=== PATIENT | female | born 1985 | race Caucasian/White ===

== ENCOUNTER 2021-03-08 16:40 | Emergency (ER) | payer OTHER, SELFPAY ==
[2021-03-08 16:50] VITALS: BP 128/76; PULSE 68; RESP 16; TEMP 36.7; O2SAT 99; BMI 23.6
--- NOTE | 2021-03-08 17:05 | ED_ITS ---
HPI - General Adult General Chief complaint: Upper Respiratory Symptoms Stated complaint: Left Sided Facial/Tonsil Pain Time Seen by Provider: 03/08/21 17:04 Source: patient Mode of arrival: Ambulatory History of Present Illness HPI narrative: 35-year-old woman with no significant medical issues presents with worsening sore throat. She was seen in urgent care yesterday diagnosed with a viral pharyngitis with a negative strep test done at that time given oral dose of Decadron and discharged home. She returns today complaining that her throat is more swollen, more full and she feels that there is more fullness on the left side of her neck as well. She is able to swallow and there is no airway compromise. She describes no significant fevers or chills. No nausea, vomiting, diarrhea. No abdominal pain chest pain or palpitations. She does have a mild headache and is complaining of your pain in fullness and pain when she opens her jaw completely. Related Data Previous Rx's Medication Instructions Recorded amoxicillin 500 mg capsule 500 mg PO TID #21 cap 03/08/21 fluconazole 150 mg tablet 150 mg PO DAILY #1 tab 03/08/21 (Diflucan) Review of Systems Review of Systems Narrative: Remainder of complete review of systems is otherwise unremarkable except for t hat included in the HPI. Patient History Social History Smoking Status: Current every day smoker Smoking Status: Current every day smoker tobacco type: cigarettes alcohol intake frequency: a few times a week Substance Use Type: does not use Exam Narrative Exam Narrative: General: Healthy appearing, in no acute distress. Able to give a complete and coherent history. Well-nourished well-developed HEENT: Moist mucous membranes, normal sclera with reactive pupils, developing left peritonsillar cellulitis without abscess. Minor anterior cervical adenopathy on the left side. Normal tympanic membranes and ear canals bilaterally. Respiratory: Lungs are clear to auscultation, no wheezing no rales no rhonchi. Full and symmetrical air movement Cardiac: Regular rate and rhythm no murmurs no bruits Abdomen: Soft, nontender, good bowel tones, no flank pain Skin: Warm and dry, no rashes Neurologic: Grossly neurologically intact with no obvious asymmetries or abnormalities Extremities: No trauma, well perfused Psych: Cooperative, appropriate insight and affect Initial Vital Signs Initial Vital Signs: Vital Signs Temperature 98.1 F 03/08/21 16:50 Pulse Rate 68 03/08/21 16:50 Respiratory Rate 16 03/08/21 16:50 Blood Pressure 128/76 03/08/21 16:50 Pulse Oximetry 99 03/08/21 16:50 Course Orders Ordered: ED Orders 03/08/21 17:09 Throat Culture Stat 03/08/21 17:26 Complete Blood Count AUTO DIFF Stat Comprehensive Metabolic Panel Stat Sodium Chloride (Normal Saline 0.9%) 1,000 mls @ 1,000 mls/hr IV BOLUS ONE Stop: 03/08/21 18:25 Last Admin: 03/08/21 17:47 Dose: 1,000 mls/hr Documented by: JESSICA Discontinued Medications Ceftriaxone Sodium 2,000 mg/ (Sodium Chloride) 100 mls @ 200 mls/hr IV NOW ONE Stop: 03/08/21 17:27 Last Admin: 03/08/21 17:49 Dose: 200 mls/hr Documented by: JESSICA Methylprednisolone (Methylprednisolone 125 Mg/2 Ml Vial) 125 mg IV NOW ONE Stop: 03/08/21 17:27 Last Admin: 03/08/21 17:50 Dose: 125 mg Documented by: JESSICA Vital Signs Vital signs: Vital Signs - 8 hr 03/08/21 16:50 Temperature 98.1 F Pulse Rate 68 Respiratory Rate 16 Blood Pressure 128/76 Pulse Oximetry 99 Medical Decision Making Lab Data Result diagrams: 03/08/21 17:26 03/08/21 17:26 Labs: Lab Results 03/08/21 03/08/21 Range/Units 17:26 17:26 WBC 11.4 H (4.5-11.0) X10^3/uL RBC 4.94 (4.0-5.2) X10^6/uL Hgb 15.2 (12.0-16.0) g/dL Hct 44.0 (36-46) % MCV 89.1 (80-100) fL MCH 30.7 (26-34) PG MCHC 34.5 (30-36) % RDW 13.0 (11.6-14.8) % Plt Count 197 (150-400) X10^3/uL Neut % (Auto) 74.6 (50-75) % Lymph % (Auto) 18.3 L (25-40) % [place] % (Auto) 5.8 (3-14) % Eos % (Auto) 0.5 L (2-4) % Baso % (Auto) 0.8 (0-2) % Neut # (Auto) 8500 H (1367-2924) /uL Lymph # (Auto) 2100 (6519-3275) /uL [place] # (Auto) 700 (0-900) /uL Eos # (Auto) 100 (0-450) /uL Baso # (Auto) 100 (0-100) /uL Sodium 138 (137-145) mmol/L Potassium 4.2 (3.4-5.1) mmol/L Chloride 109 H (98-107) mmol/L Carbon Dioxide 27 (22-32) mmol/L BUN 13 (7-17) mg/dL Creatinine 0.81 (0.52-1.04) mg/dL Estimated GFR > 60.0 (>60) mL/min BUN/Creatinine Ratio 16.0 (6-22) Glucose 88 (70-100) mg/dL Calcium 9.5 (8.4-10.2) mg/dL Total Bilirubin 0.7 (0.2-1.3) mg/dL AST 20 (14-36) IU/L ALT 12 (<35) IU/L Alkaline Phosphatase 49 (38-126) U/L Total Protein 7.0 (6.3-8.2) g/dL Albumin 4.1 (3.5-5.0) g/dL Globulin 2.9 (1.7-4.1) g/dL Albumin/Globulin Ratio 1.4 (1.0-2.8) Point of Care Testing Rapid Strep A Negative Point of care testing: Point of Care Testing Rapid Strep A Negative MDM Narrative Medical decision making narrative: 35-year-old woman with what appears to be of bacterial developing peritonsillar cellulitis without abscess. No evidence of sepsis. She has responded nicely to fluids, a single dose of Solu-Medrol in the emergency department and 2 g of ceft riaxone. To be discharged home with complete course of amoxicillin. She states that she does frequently get post antibiotic yeast infection so will also be given a dose of Diflucan to take after antibiotics are completed. Reviewed signs and symptoms of worsening infection including development of actual peritonsillar abscess. At this point she is safe for home discharge Discharge Plan Departure Patient Disposition: Home Clinical Impression: Peritonsillar cellulitis Instructions: DI for Peritonsillar Abscess -- Adult Activity Restrictions/Additional Instructions: Thank you for coming in today You do not yet have a peritonsillar abscess but there is infection and that could develop if we do not start antibiotics today. I have given you a 2nd dose of steroids today, IV antibiotics as well as fluids. Your blood work is reassuring with no signs of overwhelming infection or sepsis. I have given you a 7 day prescription for amoxicillin please complete this to avoid any worsening symptoms. If your having any vaginal yeast symptoms at the end of the amoxicillin course, you can take the single dose of Diflucan. If you have worsening problems please return to the ER. Prescriptions: New amoxicillin 500 mg capsule 500 mg PO TID Qty: 21 0RF fluconazole [Diflucan] 150 mg tablet 150 mg PO DAILY Qty: 1 0RF
[2021-03-08] MEDS: SODIUM CHLORIDE 0.9% 1,000 ML 1000 ML IV (17:47)
[2021-03-08] MEDS: cefTRIAXone 2,000 MG in SODIUM CHLORIDE 0.9% 100 ML 200 ML IV (17:49)
[2021-03-08] MEDS: methylPREDNISolone 125 MG/2 ML VIAL IV (17:50)
[2021-03-08 18:08] LABS: Add Manual Diff / Slide Review NO; Basophils Absolute Auto 100 /uL (0-100); Basophils Percent Auto 0.8 % (0-2); Eosinophils Absolute Auto 100 /uL (0-450); Eosinophils Percent Auto 0.5 % (2-4); Hemoglobin 15.2 g/dL (12.0-16.0); Lymphocytes Absolute Auto 2100 /uL (1100-4500); Lymphocytes Percent Auto 18.3 % (25-40); Mean Corpuscular HGB Conc 34.5 % (30-36); Mean Corpuscular Hemoglobin 30.7 PG (26-34); Mean Corpuscular Volume 89.1 fL (80-100); Monocytes Absolute Auto 700 /uL (0-900); Monocytes Percent Auto 5.8 % (3-14); Neutrophils Absolute Auto 8500 /uL (1500-7000); Neutrophils Percent Auto 74.6 % (50-75); Platelet Count 197 X10^3/uL (150-400); Red Blood Cell Count 4.94 X10^6/uL (4.0-5.2); White Blood Cell Count 11.4 X10^3/uL (4.5-11.0)
[2021-03-08 18:14] LABS: Alanine Aminotransferase 12 IU/L (<35); Albumin 4.1 g/dL (3.5-5.0); Albumin Globulin Ratio 1.4 (1.0-2.8); Alkaline Phosphatase 49 U/L (38-126); Aspartate Aminotransferase 20 IU/L (14-36); Bilirubin Total 0.7 mg/dL (0.2-1.3); Blood Urea Nitrogen 13 mg/dL (7-17); Calcium 9.5 mg/dL (8.4-10.2); Carbon Dioxide 27 mmol/L (22-32); Chloride 109 mmol/L (98-107); Estimated Glomerular Filt Rate > 60.0 mL/min (>60); Globulin 2.9 g/dL (1.7-4.1); Glucose 88 mg/dL (70-100); HEMOLYSIS 32 (0-50); Potassium 4.2 mmol/L (3.4-5.1); Sodium 138 mmol/L (137-145)
[2021-03-08 19:25] VITALS: BP 104/63; PULSE 67; O2SAT 97
== END 2021-03-08 19:25 | disposition home or self-care (01) ==
PROVIDERS: Emergency Provider Emergency Medicine
DX: J36 Peritonsillar abscess (principal); F17.210 Nicotine dependence, cigarettes, uncomplicated
CPT/HCPCS: 36415; 80053; 85025; 87070; 87880; 96361; 96365; 96375; 99284; J0696; J2930

== ENCOUNTER 2021-03-27 06:00 | Emergency (ER) | payer OTHER, SELFPAY ==
--- NOTE | 2021-03-27 06:08 | ED_ITS ---
HPI - Extremity Injury (Lower) General Chief Complaint: Extremity Injury, Lower Stated Complaint: right foot/injury 03/26/21 Time Seen by Provider: 03/27/21 06:07 History of Present Illness HPI Narrative: The patient is a 35-year-old female presents with right ankle and foot pain. She states that she was snowboarding yesterday when she fell on the ice. She said her feet went 1 way in body went another. Significantly tender on the lateral side. No numbness tingling or weakness. She elevated and iced. Unable to bear weight. No other injury. Related Data Previous Rx's Medication Instructions Recorded amoxicillin 500 mg capsule 500 mg PO TID #21 cap 03/08/21 fluconazole 150 mg tablet 150 mg PO DAILY #1 tab 03/08/21 (Diflucan) hydrocodone 5 mg-acetaminophen 325 1 tab PO Q6H PRN #10 tab 03/27/21 mg tablet Allergies Allergy/AdvReac Type Severity Reaction Status Date / Time No Known Drug Allergies Allergy Verified 03/08/21 18:38 Review of Systems Review of Systems Narrative: GENERAL: Denies chills,fever HEENT: Denies throat pain RESPIRATORY: Denies dyspnea, cough, wheezing CARDIOVASCULAR: Denies chest pain, palpitations GASTROINTESTINAL: Denies nausea, vomiting MUSCULOSKELETAL: See HPI SKIN: No rash, no laceration, no pruritus NEUROLOGIC: Denies weakness, dizziness, headache, numbness 8 point review of systems is negative except for those stated above and HPI Patient History Social History Smoking Status: Current every day smoker Smoking Status: Current every day smoker tobacco type: cigarettes alcohol intake frequency: a few times a week Substance Use Type: does not use Exam Initial Vital Signs Initial Vital Signs: Vital Signs Temperature 97.1 F L 03/27/21 06:09 Pulse Rate 82 03/27/21 06:09 Respiratory Rate 18 03/27/21 06:09 Blood Pressure 118/58 L 03/27/21 06:09 Pulse Oximetry 98 03/27/21 06:09 GENERAL: Well-appearing, well-nourished and in no acute distress. CARDIOVASCULAR: peripheral pulses in tact, cap refill <2 sec RESPIRATORY: No respiratory distress, speaks in full sentences without difficulty EXTREMITIES: Normal range of motion, no clubbing or edema. Neurovascularly intact Right lower extremity swollen ankle tender laterally distal pedal pulse intact. Achilles tendon intact. Foot is nontender he will is no on is tender. No e rythema. Minimal tenderness medially. NEUROLOGICAL: Cranial nerves II through XII grossly intact. Normal gait and speech. SKIN: Warm, dry, no petechiae, no rashes or lesions. Procedures Orthopedic Splinting/Casting Injury #1: Lower Extremity Injury Location: ankle Lower Extremity Immobilizer: posterior splint Post splinting neuro exam: intact and no change Post splinting vascular exam: intact Placed by: Nursing Course Orders Ordered: Discontinued Medications Hydrocodone Bitart/Acetaminophen (Hydrocodone/Acet 5/325 Prepack) 1 bottle MISC SEEINSTR ONE Stop: 03/27/21 06:46 Last Admin: 03/27/21 08:08 Dose: 1 bottle Documented by: MARY Vital Signs Vital signs: Vital Signs - 8 hr 03/27/21 06:09 Temperature 97.1 F L Pulse Rate 82 Respiratory Rate 18 Blood Pressure 118/58 L Pulse Oximetry 98 MDM - Extremity Injury (Lower) Imaging Data Extremity x-ray #1: Radiologist's Impression: Spiral nondisplaced fracture metadiaphysis distal fibula with adjacent soft tissue swelling lateral malleolus. Discharge Plan Departure Patient Disposition: Home Clinical Impression: Fracture of distal end of fibula Qualifiers: Encounter type: initial encounter Fracture type: closed Fracture morphology: o ther fracture Laterality: right Qualified Code(s): S82.831A - Other fracture of upper and lower end of right fibula, initial encounter for closed fracture Instructions: Ankle Fracture Activity Restrictions/Additional Instructions: *You have been diagnosed with right ankle fracture *What to do: Acute splint on at all times. You may start toe touching as tolerated with crutches. Elevate and ice. *Continue to take medications as directed [place] 1 tablet every 6 hours if needed for severe pain Ibuprofen 600 mg every 6 hours if needed for [id number] pain *Follow up with your primary care provider in 2-3 days, call orthopedics today to schedule follow-up appointment in about 1-2 weeks or call [phone] *Return to ER if you should have increasing pain swelling numbness tingling or any new, worsening or concerning symptoms CONTROLLED SUBSTANCE DISCHARGE (Narcotoic/benzodiazepine/Flexeril/Phenergan) 1. You have been prescribed narcotic medications, it does have acetaminophen/Tylenol/paracetamol in it, DO NOT TAKE MORE THAN 4,00mg in 24 hours of Tylenol. TRAMADOL DOES NOT CONTAIN TYLENOL 2. Please understand that we cannot provide further refills of narcotics, benzodiazepines or controlled substances through the ED and her pain management will need to be through your provider. 3. While on these medications you cannot drive or operate heavy machinery. 4. You cannot sign legal documents or perform any duties such as this. 5. As long as you're taking opiate pain medications he should also be taking a stool softener such as Colace, Dulcolax, MiraLAX or prune juice, to help avoid constipation. Prescriptions: New hydrocodone-acetaminophen 5-325 mg tablet 1 tab PO Q6H PRN (Reason: pain) Qty: 10 0RF No Action amoxicillin 500 mg capsule 500 mg PO TID Qty: 21 0RF fluconazole [Diflucan] 150 mg tablet 150 mg PO DAILY Qty: 1 0RF Referrals: [facility] [Provider Group]
[2021-03-27 06:09] VITALS: BP 118/58; PULSE 82; RESP 18; TEMP 36.2; O2SAT 98; BMI 24.3
--- NOTE | 2021-03-27 06:11 | DI.RAD.S_ITS ---
PROCEDURE: XR ANKLE RT MIN 3V INDICATIONS: injury to right ankle TECHNIQUE: 3 views of the ankle were acquired. COMPARISON: None. FINDINGS: Bones: Spiral nondisplaced distal fibular fracture extending to the articular surface. Ankle mortise is normally aligned. No suspicious bony lesions. Soft tissues: No tibiotalar joint effusion. Achilles tendon appears normal. IMPRESSION: Undisplaced distal tibial fracture. Comment: Final report is concordant with preliminary interpretation provided by [facility]. Dictated by: Orlando Muñoz M.D. on 03/27/2021 at 8:08 Approved by: Orlando Muñoz M.D. on 03/27/2021 at 8:08
[2021-03-27 08:08] VITALS: BP 112/78; PULSE 68; RESP 1; O2SAT 98
[2021-03-27] MEDS: HYDROCODONE/ACET 5/325 PREPACK 1 BOTTLE MISC (08:08)
== END 2021-03-27 08:10 | disposition home or self-care (01) ==
PROVIDERS: Emergency Provider Emergency Medicine
DX: S82.831A Other fracture of upper and lower end of right fibula, initial encounter for closed fracture (principal); F17.210 Nicotine dependence, cigarettes, uncomplicated; W00.0XXA Fall on same level due to ice and snow, initial encounter; Y93.23 Activity, snow (alpine) (downhill) skiing, snowboarding, sledding, tobogganing and snow tubing
CPT/HCPCS: 29515; 73610; 99283

== ENCOUNTER 2023-11-29 19:52 | Emergency (ER) | payer OTHER, SELFPAY ==
[2023-11-29 20:00] VITALS: BP 119/58; PULSE 68; RESP 16; TEMP 36.5; O2SAT 99; BMI 26.1
--- NOTE | 2023-11-29 20:59 | ED_ITS ---
HPI - Neck Pain/Injury General Chief Complaint: Neck Pain/Injury Stated Complaint: neck, back and arm pain Time Seen by Provider: 11/29/23 20:55 Mode of arrival: Ambulatory History of Present Illness HPI Narrative: 38-year-old female was lying in bed, turned her head to the side, felt a pinching pain in her right superior trapezius region and upper right scapula, worse with right upper extremity movements, worse with neck movements. No midline neck pain. No numbness or tingling to the extremities. No other injuries. No prior neck spinal surgeries or injections or procedures. Related Data Previous Rx's Medication Instructions Recorded amoxicillin 500 mg capsule 500 mg PO TID #21 caps 03/08/21 fluconazole 150 mg tablet 150 mg PO DAILY #1 tab 03/08/21 (Diflucan) hydrocodone 5 mg-acetaminophen 325 1 tab PO Q6H PRN pain #10 tabs 03/27/21 mg tablet cyclobenzaprine 10 mg tablet 10 mg PO TID #14 tabs 11/29/23 Allergies Allergy/AdvReac Type Severity Reaction Status Date / Time No Known Drug Allergies Allergy Verified 11/29/23 20:06 Review of Systems Review of Systems Narrative: see HPI Patient History Social History Smoking Status: Current every day smoker Smoking Status: Current every day smoker tobacco type: cigarettes alcohol intake frequency: a few times a month Substance Use Type: does not use Exam Narrative Exam Narrative: GENERAL: Well-developed patient, in mild distress. HEAD: Atraumatic. Normocephalic. EYES: Pupils equal round and reactive. Extraocular motions intact. No scleral icterus. No injection or drainage. ENT: Nose without bleeding, purulent drainage. Throat without erythema, tonsillar hypertrophy or exudate. Airway patent. NECK: Trachea midline. Non tender. Moves neck well [id number], no midline or paraspinal musculature tenderness. CARDIOVASCULAR: Regular rate and rhythm without murmurs, gallops, or rubs. RESPIRATORY: Clear to auscultation. Breath sounds equal bilaterally. No wheezes, rales, or rhonchi. GASTROINTESTINAL: Abdomen soft, non-tender, nondistended. EXTREMITIES: Right superior rhomboid muscle spasm and tenderness, no tenderness to the right AC joint, along clavicle, anterior deltoid or superior trapezius. Patient can flex and extend at the shoulder, though there is some scapular area discomfort with range of motion. No other extremity injuries or findings obvious. BACK: Nontender without deformity or crepitance. No flank tenderness. NEURO: AOx3. Motor exam grossly nonfocal SKIN: No rash or erythema of visible areas Initial Vital Signs Initial Vital Signs: Vital Signs Temperature 97.7 F 11/29/23 20:00 Pulse Rate 68 11/29/23 20:00 Respiratory Rate 16 11/29/23 20:00 Blood Pressure 119/58 L 11/29/23 20:00 Pulse Oximetry 99 11/29/23 20:00 Oxygen Delivery Method Room Air 11/29/23 20:00 Course Orders Ordered: Discontinued Medications Cyclobenzaprine HCl (Cyclobenzaprine 10 Mg Tablet) 10 mg PO NOW ONE Stop: 11/29/23 21:08 Last Admin: 11/29/23 21:16 Dose: 10 mg Documented By: PATRICK Cyclobenzaprine HCl (Cyclobenzaprine 10 Mg Prepack) 1 bottle MISC DIRECTED ONE Stop: 11/29/23 21:09 Last Admin: 11/29/23 21:16 Dose: 1 bottle Documented By: PATRICK Ketorolac Tromethamine (Ketorolac 30 Mg/Ml Vial) 30 mg IM NOW ONE Stop: 11/29/23 21:08 Last Admin: 11/29/23 21:16 Dose: 30 mg Documented By: PATRICK Vital Signs Vital signs: Vital Signs - 8 hr 11/29/23 20:00 11/29/23 21:43 Temperature 97.7 F 97.9 F Pulse Rate 68 59 L Respiratory Rate 16 16 Blood Pressure 119/58 L 114/65 Pulse Oximetry 99 99 Oxygen Delivery Method Room Air Room Air MDM - Neck Pain/Injury MDM Narrative Medical decision making narrative: 38-year-old female was reaching for an object supine position when she felt right upper rhomboid/scapular discomfort, worse with movements. No midline cervical neck pain or tenderness. Rhomboid musculature superiorly with palpable cord, consistent with muscle spasm. IM Toradol, oral cyclobenzaprine muscle relaxant. She had ride home. Prescription sent for further cyclobenzaprine to use if needed. Recheck advised next couple of days if not improving with her regular doctor. Return precautions for worsening symptoms or concerns prior Discharge Plan Departure Patient Disposition: Home Clinical Impression: Rhomboid muscle strain Activity Restrictions/Additional Instructions: Right shoulder blade area discomfort, when looking and reaching from lying position tonight, rhomboid muscle spasm on exam. Injection of Toradol anti- inflammatory pain medication, oral cyclobenzaprine muscle relaxant, home pack of cyclobenzaprine. Prescription also sent to your pharmacy to use if needed. Take [id number] Tylenol and or Motrin as needed for pain control. Follow up with the regular doctor in the next couple of days to reassess symptoms. Return to this/nearest emergency department for any change worsening symptoms or any concerns prior Prescriptions: New cyclobenzaprine 10 mg tablet 10 mg PO TID Qty: 14 0RF No Action amoxicillin 500 mg capsule 500 mg PO TID Qty: 21 0RF fluconazole [Diflucan] 150 mg tablet 150 mg PO DAILY Qty: 1 0RF hydrocodone-acetaminophen 5-325 mg tablet 1 tab PO Q6H PRN (Reason: pain) Qty: 10 0RF Referrals: [facility]ette [Primary Care Provider] - Stand Alone Forms: Patient Portal/API
[2023-11-29] MEDS: CYCLOBENZAPRINE 10 MG PREPACK 1 BOTTLE MISC (21:16)
[2023-11-29] MEDS: KETOROLAC 30 MG/ML VIAL IM (21:16)
[2023-11-29] MEDS: CYCLOBENZAPRINE 10 MG TABLET PO (21:16)
[2023-11-29 21:43] VITALS: BP 114/65; PULSE 59; RESP 16; TEMP 36.6; O2SAT 99
== END 2023-11-29 21:44 | disposition home or self-care (01) ==
PROVIDERS: Emergency Provider Emergency Medicine
DX: S29.012A Strain of muscle and tendon of back wall of thorax, initial encounter (principal)
CPT/HCPCS: 96372; 99283; J1885